=== PATIENT | female | born 1975 | race Caucasian/White ===

== ENCOUNTER → 2019-12-15 16:38 | Outpatient (BNVA) | payer OTHER, SELFPAY | PROVIDERS: Visit Provider Family Medicine | DX: R68.82 Decreased libido (principal); Z68.20 Body mass index [BMI] 20.0-20.9, adult | CPT/HCPCS: 84403 ==

== ENCOUNTER 2019-12-16 13:03 | Outpatient (CLI) | payer OTHER, SELFPAY ==
--- NOTE | 2019-12-16 11:30 | XR_ITS ---
WS: [id number] CERVICAL SPINE 3 VIEWS HISTORY: Neck pain COMPARISON: None available. Less than 2 mm anterolisthesis of C4. Moderate disc space narrowing and endplate osteophytes at C6-7. No fractures. Lateral masses of C1 and C2 are aligned. The odontoid is intact. Soft tissues are normal. XR/XR cervical spine 3V* [id number] IMPRESSION: 1. Moderate degenerative disc disease at C6-7. 2. No fractures.
== END 2019-12-16 13:04 | disposition home or self-care (01) ==
LOC: RADWPI 13:09
PROVIDERS: PCP Family Medicine; Visit Provider Family Medicine
DX: M50.323 Other cervical disc degeneration at C6-C7 level (principal)
CPT/HCPCS: 72040

== ENCOUNTER 2019-12-26 07:10 | Outpatient (CLI) | payer OTHER, SELFPAY ==
--- NOTE | 2019-12-26 07:15 | MR_ITS ---
WS: [id number] MRI CERVICAL SPINE HISTORY: M54.2 Cervicalgia COMPARISON: None available. Normal cervical alignment. Mild degenerative disc space narrowing and desiccation at C5-6 and C6-7. Signal within the cervical cord is normal. Visualized posterior fossa is unremarkable. Craniocervical junction, C1 and C2 relationship, odontoid process and soft tissues are normal. C2-C3: Normal. C3-C4: Normal. C4-C5: Normal. C5-C6: Moderate size central to RIGHT paracentral disc protrusion with near contact on the cord. Very slight deformity of the lateral RIGHT lateral thecal sac. No foraminal stenosis. C6-C7: Mild osteophytic ridging and annular disc bulging. Small bilateral disc osteophyte complexes a nd the foramen causing mild bilateral foraminal stenosis. C7-T1: Normal. Paraspinal soft tissue are normal. MR/MR cervical spin wo con* [id number] IMPRESSION: 1. No severe central or foraminal stenosis. 2. Moderate-sized central to RIGHT paracentral disc protrusion at C5-6 with mi nimal deformity of the RIGHT lateral thecal sac. 3. Mild bilateral foraminal stenosis at C6-7 due to disc osteophyte complexes.
== END 2019-12-26 07:11 | disposition home or self-care (01) ==
LOC: RADSHAW 07:13
PROVIDERS: PCP Family Medicine; Visit Provider Family Medicine
DX: M50.222 Other cervical disc displacement at C5-C6 level (principal); M48.02 Spinal stenosis, cervical region
CPT/HCPCS: 72141

== ENCOUNTER → 2020-01-06 10:49 | Outpatient (BNVA) | payer OTHER, SELFPAY | PROVIDERS: PCP Family Medicine; Referring Provider Family Medicine; Visit Provider Anesthesiology Pain Medicine | DX: G89.29 Other chronic pain (principal); M54.2 Cervicalgia; F17.210 Nicotine dependence, cigarettes, uncomplicated; Z79.891 Long term (current) use of opiate analgesic | CPT/HCPCS: 99205 ==

== ENCOUNTER → 2020-01-19 13:22 | Outpatient (BNVA) | payer OTHER, SELFPAY | PROVIDERS: PCP Family Medicine; Visit Provider Anesthesiology Pain Medicine | DX: M54.2 Cervicalgia (principal); F17.210 Nicotine dependence, cigarettes, uncomplicated | CPT/HCPCS: 62321; J1100 ==

== ENCOUNTER → 2020-02-02 12:25 | Outpatient (BNVA) | payer OTHER, SELFPAY | PROVIDERS: PCP Family Medicine; Visit Provider Anesthesiology Pain Medicine | DX: M54.2 Cervicalgia (principal); F17.210 Nicotine dependence, cigarettes, uncomplicated; Z79.891 Long term (current) use of opiate analgesic | CPT/HCPCS: 62321; J1100 ==

== ENCOUNTER → 2020-04-06 09:45 | Outpatient (BNVA) | payer OTHER, SELFPAY | PROVIDERS: PCP Family Medicine; Visit Provider Anesthesiology Pain Medicine | DX: M54.2 Cervicalgia (principal); F17.210 Nicotine dependence, cigarettes, uncomplicated; Z79.891 Long term (current) use of opiate analgesic | CPT/HCPCS: 99214 ==

== ENCOUNTER → 2020-04-12 14:00 | Outpatient (BNVA) | payer OTHER, SELFPAY | PROVIDERS: PCP Family Medicine; Visit Provider Anesthesiology Pain Medicine | DX: M54.2 Cervicalgia (principal); F17.210 Nicotine dependence, cigarettes, uncomplicated | CPT/HCPCS: 62321; J1100 ==

== ENCOUNTER → 2020-10-18 13:27 | Outpatient (BNVA) | payer OTHER, SELFPAY | PROVIDERS: PCP Family Medicine; Visit Provider Nurse Practitioner Family | DX: Z20.822 Contact with and (suspected) exposure to COVID-19 (principal) | CPT/HCPCS: 87635 ==

== ENCOUNTER 2021-05-16 08:41 | Outpatient (CLI) | payer OTHER, SELFPAY ==
--- NOTE | 2021-05-16 08:45 | US_ITS ---
WS: [id number] INDICATION: Soft tissue ultrasound. Palpable mass in groin. TECHNIQUE: Ultrasound soft tissue. FINDINGS: Ultrasound soft tissue area of concern RIGHT groin. The area of palpable concern is a cysti c hypoechoic fluid collection measuring 1.5 x 0.8 x 1.8 cm with some internal debris. This is nonspec ific but may represent a small seroma. No other suspicious findings. IMPRESSION: 1. 1.5 x 0.9 x 1.8 cm hypoechoic fluid collection with some internal debris in the area of concern. This is nonspecific but may represent a small seroma. Recommend correlation with infection or prior s urgery in this area. 2. No other suspicious findings.
== END 2021-05-16 08:42 | disposition home or self-care (01) ==
PROVIDERS: PCP Family Medicine; Visit Provider Family Medicine
DX: R19.09 Other intra-abdominal and pelvic swelling, mass and lump (principal)
CPT/HCPCS: 76882

== ENCOUNTER → 2021-07-04 13:54 | Outpatient (BNVA) | payer OTHER, SELFPAY | PROVIDERS: PCP Family Medicine; Referring Provider Family Medicine; Visit Provider Podiatrist Foot & Ankle Surgery | DX: M79.671 Pain in right foot (principal); M79.672 Pain in left foot; M21.612 Bunion of left foot; M21.611 Bunion of right foot | CPT/HCPCS: 73630 ==

== ENCOUNTER → 2021-07-26 08:52 | Outpatient (BNVA) | payer OTHER, SELFPAY | PROVIDERS: PCP Family Medicine; Visit Provider Orthopaedic Surgery | DX: M54.2 Cervicalgia (principal) | CPT/HCPCS: 72050 ==

== ENCOUNTER 2022-02-15 09:46 | Outpatient (CLI) | payer OTHER, SELFPAY ==
--- NOTE | 2022-02-15 09:57 | MM_ITS ---
WS: [id number] BILATERAL SCREENING DIGITAL BREAST MAMMOGRAPHY WITH FOSTER DISPLACEMENT VIEWS. CAD PERFORMED. HISTORY: SCREENING COMPARISON: 10/04/2016 Bilateral craniocaudal and mediolateral oblique views are performed with tomosynthesis and SM. Foster displacement views in CC and MLO projection also performed. Breasts composition: There are scattered areas of fibroglandular density. Retropectoral implants are intact. No suspicious mass or calcifications. MM/[place] [id number] IMPRESSION: BI-RADS: 2-Benign FOLLOW-UP: 1 Year Follow-up
== END 2022-02-15 09:47 | disposition home or self-care (01) ==
LOC: RAD 09:46
PROVIDERS: PCP Family Medicine; Visit Provider Family Medicine
DX: Z12.31 Encounter for screening mammogram for malignant neoplasm of breast (principal)
CPT/HCPCS: 77063; 77067

== ENCOUNTER 2022-04-10 14:53 | Inpatient (IN) | payer OTHER, SELFPAY ==
--- NOTE | 2022-04-10 14:57 | W.ED.ABDPA2 ---
HPI - Abdominal Pain General: Chief Complaint: Abdominal Pain Stated Complaint: lower abd pain Time Seen by Provider: 04/10/22 14:57 History of Present Illness: Ms. Pascual is a 46-year-old lady presenting to the emergency department due to abdominal pain. Onset of symptoms was few days ago and subacute. She endorses suprapubic and right lower quadrant abdominal pain. Associated pain when using pelvic floor muscles. She has no pain with initiating urination but has pain with stopping and also reports pain with straining for bowel movement. Sometimes pain radiating symptoms with epigastric region. Nausea but no vomiting. Intensity symptoms moderate to severe. Course has persisted. No other specific changes in health, exacerbating, or alleviating factors identified. Onset (ago): day(s) Pain Consistency: constant Severity: moderate Quality: aching and sharp Radiation: epigastric Migration to: no migration Exacerbating factors: bowel movement and other Relieving factors: nothing Review of Systems General: Reports: 10 or more systems reviewed and unremarkable except in HPI and below PFSH ED PFSH: Medical History Anxiety Surgical History H/O breast augmentation H/O hernia repair H/O knee surgery LEFT KNEE WITH DR SMITH H/O plastic surgery Family History Father Cancer Lymphoma Denies family history of Anesthesia complication Bleeding disorder Social History Smoking and tobacco status: current every day smoker cigarettes Packs smoked per day: 0.5 Alcohol intake: current Alcohol intake frequency: holidays/special occasions only Lives independently: Yes Physical Exam Const: COMMON NORMALS: alert GENERAL APPEARANCE: cooperative and well developed HENMT: COMMON NORMALS: normocephalic and atraumatic HEAD & SCALP: normocephalic and atraumatic Eye: COMMON NORMALS: conjunctivae normal CONJUNCTIVA: Yes conjunctivae normal SCLERA: sclerae normal Neck/C-Spine: COMMON NORMALS: supple GENERAL: Yes trachea midline Resp: COMMON NORMALS: clear to auscultation bilaterally EFFORT & INSPECTION: Yes able to speak in complete sentences AUSCULTATION: clear to auscultation bilaterally Cardio: COMMON NORMALS: regular rate and regular rhythm RATE: regular rate RHYTHM: regular rhythm GI: COMMON NORMALS: Soft to palpation PALPATION: Yes Soft to palpation, Yes Tenderness to palpation present (GI) Details: RLQ, No Guarding due to palpation present (GI) and No Rigid due to palpation Extremity: GENERAL: Yes normal exam except as noted and No edema Neuro: COMMON NORMALS: moves all extremities SENSORIUM/ORIENTATION: Yes alert and No Orientation impaired Psych: COMMON NORMALS: mental status grossly normal and Normal thought process present THOUGHT PROCESS: Normal thought process present Course Vital Signs: Vital signs: Vital Signs Temperature 97.8 F 04/13/22 13:31 Pulse Rate 94 04/13/22 13:31 Respiratory Rate 16 04/13/22 13:31 Blood Pressure 115/75 04/13/22 13:31 Pulse Oximetry 94 04/13/22 13:31 Oxygen Delivery Me thod 04/13/22 11:58 MDM - Abdominal Pain Medical Decision Making 46-year-old lady presenting with lower abdominal pain. Abdomen is quite tender on exam without acute surgical abdomen. Labs notable for mild leukocytosis, normal hemoglobin. Metabolic panel with perhaps mild dehydration. Hematuria without other evidence of urinary tract infection. CT demonstrates sigmoid diverticulitis with early evidence of perforation. Patient treated with antibiotics, fluids, antiemetic, analgesia. Case discussed with general surgery who will consult. Most likely etiology of symptoms is diverticulitis with contained perforation. The results of ED evaluation were discussed with the patient including plan for admission due to requirement for level of care not available if discharged to prevent significant worsening/deterioration. Patient agreeable with plan. Discussed with hospitalist service who was agreeable to admit patient. Medical Records I reviewed the patient's medical records. Lab Data I reviewed the patient's lab results. 04/10/22 15:45 04/10/22 15:45 Labs/Radiology: Radiology Impressions KUB X-Ray 04/11/22 06:00 IMPRESSION: Unremarkable radiographic appearance of the abdomen. Abdomen/Pelvis CT 04/13/22 06:52 IMPRESSION: 1. Interval development of a small RIGHT pleural effusion, ascites, mesenteric edema and periportal edema since 04/10/2022. 2. Periportal edema with IVC enlargement are thought to be related to systemic hypervolemia. Can also be seen with passive hepatic congestion and acute hepatitis. 3. Sigmoid diverticulosis without acute diverticulitis. Wall thickening with numerous diverticula. No definite free air is identified. Mild inflammatory changes persist. Laboratory Results WBC 10.6 10^3/uL (4.0-10.0) H 04/10/22 15:45 RBC 4.83 10^6/uL (4.1-5.3) 04/10/22 15:45 Hgb 13.1 g/dL (11.5-15.3) 04/10/22 15:45 Hct 41.1 % (37.0-47.0) 04/10/22 15:45 MCV 85.1 fl (81-99) 04/10/22 15:45 MCH 27.1 pg (28.0-34.0) L 04/10/22 15:45 MCHC 31.9 g/dL (30.0-36.0) 04/10/22 15:45 RDW 12.2 % (12.1-15.1) 04/10/22 15:45 Plt Count 153 10^3/cmm (130-400) 04/10/22 15:45 MPV 12.9 fL (7.4-10.4) H 04/10/22 15:45 Neut % (Auto) 71.8 % 04/10/22 15:45 Lymph % (Auto) 17.1 % 04/10/22 15:45 Glynn % (Auto) 8.3 % 04/10/22 15:45 Eos % (Auto) 1.6 % 04/10/22 15:45 Baso % (Auto) 0.9 % 04/10/22 15:45 Neut # (Auto) 7.58 10^3/uL (1.8-7.7) 04/10/22 15:45 Lymph # (Auto) 1.8 10^3/uL (0.8-4.8) 04/10/22 15:45 Glynn # (Auto) 0.9 10^3/uL (0.2-0.9) 04/10/22 15:45 Eos # (Auto) 0.2 10^3/uL (0.0-0.8) 04/10/22 15:45 Baso # (Auto) 0.1 10^3/uL (0.0-0.1) 04/10/22 15:45 Nucleated RBC % (auto) 0 % 04/10/22 15:45 Nucleated RBCs # 0.0 /100WBC 04/10/22 15:45 Sodium 134 mmol/L (136-145) L 04/10/22 15:45 Potassium 3.8 mmol/L (3.5-5.1) 04/10/22 15:45 Chloride 97 mmol/L (98-107) L 04/10/22 15:45 Carbon Dioxide 26 mmol/L (22-29) 04/10/22 15:45 Anion Gap 14.8 (5-19) 04/10/22 15:45 BUN 10 mg/dL (6-20) 04/10/22 15:45 Creatinine 0.7 mg/dL (0.5-0.9) 04/10/22 15:45 GFR Calculation 89.7 mL/min (90-130) L 04/10/22 15:45 Glucose 83 mg/dL (65-115) 04/10/22 15:45 Calculated Osmolality 276 mOsm/kg (285-295) L 04/10/22 15:45 Calcium 8.8 mg/dL (8.5-10.5) 04/10/22 15:45 Total Bilirubin 0.3 mg/dL (0.15-1.2) 04/10/22 15:45 AST 26 U/L (0-32) 04/10/22 15:45 ALT 19 U/L (0-33) 04/10/22 15:45 Alkaline Phosphatase 67 U/L (35-105) 04/10/22 15:45 Total Protein 6.8 g/dL (6.6-8.7) 04/10/22 15:45 Albumin 3.8 g/dL (3.5-5.2) 04/10/22 15:45 Globulin 3.0 g/dL (1.3-4.6) 04/10/22 15:45 Lipase 23 U/L (13-60) 04/10/22 15:45 HCG, Qual Negative (Negative) 04/10/22 15:21 Urine Color Yellow (Yellow) 04/10/22 15:21 Urine Appearance Clear (CLEAR) 04/10/22 15:21 Urine pH 5 (5-7) 04/10/22 15:21 Ur Specific [place] 1.015 (1.005-1.030) 04/10/22 15:21 Urine Protein Neg (Negative) 04/10/22 15:21 Urine Glucose (UA) Norm (Normal) 04/10/22 15:21 Urine Ketones 1+ (Negative) H 04/10/22 15:21 Urine Blood 3+ (Negative) H 04/10/22 15:21 Urine Nitrate Negative (Negative) 04/10/22 15:21 Urine Bilirubin Neg (Negative) 04/10/22 15:21 Urine Urobilinogen Norm mg/dL (Negative) 04/10/22 15:21 Ur Leukocyte Esterase Negative (Negative) 04/10/22 15:21 Urine RBC 0-4 /hpf (0-2) H 04/10/22 15:21 Urine WBC None /hpf (0-5) 04/10/22 15:21 Ur Squamous Epith Cells 0-4 /hpf (0-5) H 04/10/22 15:21 Amorphous Sediment Not Reportable 04/10/22 15:21 Urine Bacteria Trace /hpf (NONE) 04/10/22 15:21 Discharge Plan Discharge Patient Disposition: Admitted As Inpatient Admit Provider: Logan Pichardo Clinical Impression: Diverticulitis of large intestine with complication Condition: Stable Discharge Diet: Advance as tolerated Discharge Activity: Resume usual activity Coding Level of Care Code ED Systems Protection Technician for Leslee Campbell
[2022-04-10 14:58] VITALS: BP 107/74; PULSE 101; RESP 18; TEMP 36.7; O2SAT 100
[2022-04-10 15:05] VITALS: BP 104/67; PULSE 83; O2SAT 97
[2022-04-10 15:35] VITALS: PULSE 81; O2SAT 99
[2022-04-10 15:53] LABS: Basophils # 0.1 10^3/uL (0.0-0.1); Basophils % 0.9 %; Eosinophils # 0.2 10^3/uL (0.0-0.8); Eosinophils % 1.6 %; Hematocrit 41.1 % (37.0-47.0); Hemoglobin 13.1 g/dL (11.5-15.3); Lymphocytes # 1.8 10^3/uL (0.8-4.8); Lymphocytes % 17.1 %; Mean Corpuscular HGB Conc 31.9 g/dL (30.0-36.0); Mean Corpuscular Hemoglobin 27.1 pg (28.0-34.0); Mean Corpuscular Volume 85.1 fl (81-99); Mean Platelet Volume 12.9 fL (7.4-10.4); Monocytes # 0.9 10^3/uL (0.2-0.9); Monocytes % 8.3 %; Neutrophils # 7.58 10^3/uL (1.8-7.7); Neutrophils % 71.8 %; Nucleated Red Blood Cells % 0 %; Platelet Count 153 10^3/cmm (130-400); Red Blood Count 4.83 10^6/uL (4.1-5.3); Red Cell Distribution Width 12.2 % (12.1-15.1); White Blood Count 10.6 10^3/uL (4.0-10.0)
[2022-04-10 15:56] LABS: HCG Qualitative Urine. Negative (Negative); Urine Appearance Clear (CLEAR); Urine Color Yellow (Yellow); pH Urine 5 (5-7)
[2022-04-10 15:57] LABS: Add Urine Microscopic? YES; Bacteria Urine TRACE /hpf; Bilirubin Urine Neg (Negative); Glucose Urine UA Norm (Normal); Leukocyte Esterase Urine Negative (Negative); Nitrate Urine Negative (Negative); Protein Urine Neg (Negative); RBC Urine 0-4 /hpf (0-2); Specific Gravity, Urine 1.015 (1.005-1.030); Squamous Epithelial Cell Urine 0-4 /hpf (0-5); Urobilinogen Urine Norm (Negative)
[2022-04-10 15:58] LABS: Add Urine Culture? No; Blood Urine 3+ (Negative); Ketones Urine 1+ (Negative)
[2022-04-10 16:05] VITALS: BP 104/67; PULSE 73; RESP 16; O2SAT 100
[2022-04-10] MEDS: sodium chloride 0.9% 1,000 ML 999 ML IV (16:07)
[2022-04-10] MEDS: ondansetron 2 mg/ML SDV 2 mL 4 MG IVP (16:07)
[2022-04-10 16:13] LABS: Alanine Aminotransferase 19 U/L (0-33); Albumin Level 3.8 g/dL (3.5-5.2); Alkaline Phosphatase 67 U/L (35-105); Anion Gap 14.8 (5-19); Aspartate Amino Transferase 26 U/L (0-32); Blood Urea Nitrogen 10 mg/dL (6-20); Calcium 8.8 mg/dL (8.5-10.5); Carbon Dioxide 26 mmol/L (22-29); Chloride 97 mmol/L (98-107); Glomerular Filtration Rate 89.7 mL/min (90-130); Glucose 83 mg/dL (65-115); Lipase 23 U/L (13-60); Osmolality Calculated 276 mOsm/kg (285-295); Potassium 3.8 mmol/L (3.5-5.1); Sodium 134 mmol/L (136-145); Total Bilirubin 0.3 mg/dL (0.15-1.2); Total Protein 6.8 g/dL (6.6-8.7)
--- NOTE | 2022-04-10 16:20 | CTR_ITS ---
PROCEDURE INFORMATION: Exam: CT Abdomen And Pelvis Without Contrast Exam date and time: 04/10/2022 4:32 PM Age: 46 years old Clinical indication: Abdominal pain; Prior surgery; Surgery date: 6+ months; Surgery type: Hernia; Additional info: Abd pain, suprapubic and rlq, hematuria TECHNIQUE: Imaging protocol: Computed tomography of the abdomen and pelvis without contrast. Axial, coronal and sagittal reformatted images were created and reviewed. Radiation optimization: All CT scans at this facility use at least one of these dose optimization techniques: automated exposure control; mA and/or kV adjustment per patient size (includes targeted exams where dose is matched to clinical indication); or iterative reconstruction. Other protocol: This patient has received 0 known CTs and 0 known cardiac nuclear medicine studies in the 12 months prior to the current study. COMPARISON: US soft tissue/extremity [id number] 05/16/2021 9:46 AM RADIATION DOSE METRICS: Total DLP (mGy-cm): 379.01 FINDINGS: Liver: Scattered hepatic cysts, measuring up to 2.6 cm in the left hepatic lobe. Gallbladder and bile ducts: No radiodense gallstones. No biliary ductal dilatation. Pancreas: Unremarkable. Spleen: Several low-density splenic lesions, measuring up to 1.3 cm. Adrenal glands: Normal. No mass. Kidneys and ureters: No mass. No radiodense calculi. No hydronephrosis. Stomach and bowel: Focal area of wall thickening and associated pericolonic stranding in the sigmoid colon in a region containing multiple diverticula. No obstruction. No pneumatosis. Appendix: Normal. Intraperitoneal space: Trace nonspecific free pelvic fluid, likely physiologic and/or reactive. No organized fluid collection. Small amount of extraluminal gas adjacent to the inflamed segment of sigmoid colon. Vasculature: Unremarkable. No aneurysm. Lymph nodes: No pathologically enlarged lymph nodes. Urinary bladder: Unremarkable as visualized. Reproductive: Unremarkable. Bones/joints: No acute osseous abnormality. Osteopenia. Mild degenerative changes. Soft tissues: Breast implants in place. CT/CT kidney stone [id number] IMPRESSION: 1. Acute sigmoid diverticulitis with evidence of early perforation. 2. Additional findings, as above.
--- NOTE | 2022-04-10 18:12 | P.HP_ITS ---
Providers/Chief Complaint Primary Care Provider: Aniya Bishop MD Chief Complaint: lower abd pain History of Present Illness Alexia Pascual is a 46 year old female with a past medical history of irritable bowel syndrome, anxiety, who presents [facility] due to a 48-hour history of abdominal pain, distention, bloating, inability to pass gas. Patient has been for the last 40 hours, she started to develop abdominal distention, bloating, she felt like she was , no fevers, chills, poor appetite, no nausea, no vomiting, she tells me last she is to get an enema, and she had to strain and she was able to have a bowel movement early this morning. No bloody or black stools. Continues to have abdominal pain, bloating, and inability to pass gas, that she came to the emergency room, in the emergency room she was alonzo gnosed with diverticulitis with evidence of early perforation, currently hemodynamically stable, alert oriented x3, following all commands, n.p.o., at bedside, surgery has called, hospitalist team has been called to help with medical management Review of Systems Const: Denies: fever(s), chills, fatigue or malaise Eyes: Denies: change in vision Card: Denies: chest pain Resp: Denies: dyspnea, productive cough, non-productive cough or wheezing GI: Reports: abdominal pain; Denies: nausea or vomiting : Denies: dysuria Musc: Denies: back pain Neuro: Denies: dizziness Medications/Allergies Home Medications Medication Instructions Recorded Confirmed Last Taken Type albuterol sulfate 90 mcg/actuation See Rx Instructions .Route 03/16/21 01/19/22 Unknown Rx aerosol inhaler (Ventolin HFA) .COMPLEX #1 g amlodipine 2.5 mg tablet 1.25 mg PO DAILY #30 tabs 03/16/21 01/19/22 Unknown Rx triamterene 37.5 1 tab PO QAM #30 tabs 03/16/21 01/19/22 Unknown Rx mg-hydrochlorothiazide 25 mg tablet (Maxzide-25mg) dapsone 5 % topical gel 1 applic topical BID #60 grams 05/02/21 01/19/22 Unknown Rx doxycycline hyclate 100 mg capsule 100 mg PO BID #20 caps 05/23/21 01/19/22 Unknown Rx valacyclovir 1 gram tablet See Rx Instructions .Route 08/03/21 01/19/22 Unknown Rx .COMPLEX #4 tabs lisdexamfetamine 40 mg capsule 40 mg PO QAM 30 days #30 caps 01/19/22 01/19/22 Unknown Rx (Vyvanse) trazodone 100 mg tablet 100 mg PO .QHS #30 tabs 01/19/22 01/19/22 Unknown Rx citalopram 20 mg tablet (Celexa) 20 mg PO DAILY #30 tabs 02/09/22 Unknown Rx alprazolam 0.25 mg tablet 0.25 mg PO DAILY PRN anxiety #30 02/10/22 Unknown Rx tabs Allergies Allergy/AdvReac Type Severity Reaction Status Date / Time No Known Allergies Allergy Verified 01/19/22 09:13 PFSH Acute PFSH: Medical History Anxiety Surgical History H/O breast augmentation H/O hernia repair H/O knee surgery LEFT KNEE WITH DR SMITH H/O plastic surgery Family History (Updated 04/10/22 @ 18:15 by Logan Pichardo MD) Father Cancer Lymphoma Denies family history of Anesthesia complication Bleeding disorder Social History Smoking and tobacco status: current every day smoker cigarettes Packs smoked per day: 0.5 Alcohol intake: current Alcohol intake frequency: holidays/special occasions only Lives independently: Yes Vitals/I&O/Wt Last Vital Signs Temp 98.1 F 04/10/22 14:58 Pulse 73 04/10/22 16:05 Resp 16 04/10/22 16:05 BP 104/67 04/10/22 16:05 Pulse Ox 100 04/10/22 16:05 O2 Del Method 04/10/22 16:05 Weight last 48 hrs Weight 66.678 kg Physical Exam Const: COMMON NORMALS: no acute distress and patient oriented x3 HENMT: COMMON NORMALS: normocephalic HEAD & SCALP: normocephalic Eye: COMMON NORMALS: Equal, round and reactive pupils present and EOMs intact bilaterally Neck/C-Spine: COMMON NORMALS: no JVD Lymph: LYMPHATIC: no lymphadenopathy noted Resp: COMMON NORMALS: normal respiratory effort, No retractions, No use of accessory muscles and clear to auscultation bilaterally AUSCULTATION: clear to auscultation bilaterally Cardio: COMMON NORMALS: no JVD, regular rate, regular rhythm, S1 normal heart sound present and S2 normal heart sound present RATE: regular rate RHYTHM: regular rhythm HEART SOUNDS: S1 normal heart sound present and S2 normal heart sound present GI: OTHER: Abdomen soft, distended, diffuse tenderness, exquisite tenderness in left lower quadrant, no guarding, no rebound, no rigidity : COMMON NORMALS: Yes no CVA tenderness Extremity: COMMON NORMALS: no pedal edema Neuro: COMMON NORMALS: patient oriented x3, CN's II-XII intact bilaterally, moves all extremities and no focal motor deficits Psych: COMMON NORMALS: mental status grossly normal Data 04/10/22 15:45 04/10/22 15:45 Micro: Microbiology 04/10/22 17:10 Wet Prep - Final Vaginal A&P Assessment and plan (1) Diverticulitis of colon with perforation: (2) Goals of care, counseling/discussion: (3) Smoker: (4) Irritable bowel syndrome: Plan Acute diverticulitis with evidence of early perforation -CT without contrast Stomach and bowel: Focal area of wall thickening and associated pericolonic stranding in the sigmoid colon in a region containing multiple diverticula. No obstruction. No pneumatosis. Appendix: Normal. Intraperitoneal space: Trace nonspecific free pelvic fluid, likely physiologic and/or reactive. No organized fluid collection. Small amount of extraluminal gas adjacent to the inflamed segment of sigmoid colon. Vasculature: Unremarkable. No aneurysm. Lymph nodes: No pathologically enlarged lymph nodes. Urinary bladder: Unremarkable as visualized. Reproductive: Unremarkable. Bones/joints: No acute osseous abnormality.? Osteopenia. Mild degenerative changes. Soft tissues: Breast implants in place. CT/CT kidney stone [id number] IMPRESSION: 1. Acute sigmoid diverticulitis with evidence of early perforation. 2. Additional findings, as above. -Pro-[place], CRP, lactic acid, blood cultures, INR Plan -Admit to medical floors -Serial abdominal exams -Keep n.p.o. -KUB in a.m. -Based on clinical progress might have to order CT scan abdomen pelvis with contrast -Morphine for pain control -Zofran for nausea -D5 normal saline IV fluids for hydration -Place Hayes catheter -Full code, goals of care discussion -Lovenox on hold for DVT prophylaxis and SCDs as there might be plans on surgery Attestations Medical Necessity Statement*: Patient will consult position, inpatient, greater than 2 midnights, for diverticulitis of colon with perforation, irritable bowel syndrome Coding Level of Care Code Acute Code for Chg Fwd Diagnoses Diverticulitis of colon with perforation K57.20 Goals of care, counseling/discussion Z71.89 Smoker F17.200 Irritable bowel syndrome K58.9
[2022-04-10] MEDS: piperacillin-tazobactam 4.5 GM in sodium chloride 0.9% (plus) 50 ML IV (18:30)
[2022-04-10 18:48] LABS: Lactic Sepsis W/Reflex 0.6 mmol/L (0.5-2.2)
[2022-04-10 18:52] LABS: INR 0.98 (0.8-1.2)
[2022-04-10 19:31] VITALS: BP 100/72; PULSE 75; RESP 14; O2SAT 99
[2022-04-10 21:00] VITALS: BP 94/60; PULSE 69; RESP 17; TEMP 36.7; O2SAT 97
[2022-04-10] MEDS: pantoprazole 40 mg SDV IVP (22:10)
[2022-04-10] MEDS: dextrose 5%-sod chloride 0.9% 1,000 ML 125 ML IV (22:12)
[2022-04-10 23:07] LABS: Thyroid Stimulating Hormone 3.42 uIU/mL (0.27-4.20)
[2022-04-11] VITALS (7 sets, daily range): BP systolic 87–138; BP diastolic 51–72; PULSE 51–81; RESP 15–17; TEMP 36.4–37; O2SAT 96–99
[2022-04-11] MEDS: trazodone 100 mg Tablet 50 MG PO (01:09)
[2022-04-11] MEDS: piperacillin-tazobactam 3.375 GM in sodium chloride 0.9% (plus) 50 ML IV ×3 (01:12→16:45)
[2022-04-11 05:33] LABS: Basophils # 0.1 10^3/uL (0.0-0.1); Basophils % 1.2 %; Eosinophils # 0.2 10^3/uL (0.0-0.8); Eosinophils % 3.1 %; Hematocrit 38.3 % (37.0-47.0); Hemoglobin 12.3 g/dL (11.5-15.3); Lymphocytes # 1.9 10^3/uL (0.8-4.8); Lymphocytes % 30.1 %; Mean Corpuscular HGB Conc 32.1 g/dL (30.0-36.0); Mean Corpuscular Hemoglobin 27.4 pg (28.0-34.0); Mean Corpuscular Volume 85.3 fl (81-99); Mean Platelet Volume 13.4 fL (7.4-10.4); Monocytes # 0.7 10^3/uL (0.2-0.9); Monocytes % 10.5 %; Neutrophils # 3.52 10^3/uL (1.8-7.7); Neutrophils % 54.9 %; Nucleated Red Blood Cells % 0 %; Platelet Count 146 10^3/cmm (130-400); Red Blood Count 4.49 10^6/uL (4.1-5.3); Red Cell Distribution Width 12.2 % (12.1-15.1); White Blood Count 6.4 10^3/uL (4.0-10.0)
[2022-04-11 05:43] LABS: Lactate (Lactic Acid level) 0.6 mmol/L (0.5-2.2)
[2022-04-11 05:45] LABS: Alanine Aminotransferase 15 U/L (0-33); Albumin Level 3.2 g/dL (3.5-5.2); Alkaline Phosphatase 55 U/L (35-105); Anion Gap 12.8 (5-19); Aspartate Amino Transferase 19 U/L (0-32); Blood Urea Nitrogen 9 mg/dL (6-20); Calcium 8.1 mg/dL (8.5-10.5); Carbon Dioxide 22 mmol/L (22-29); Chloride 108 mmol/L (98-107); Glomerular Filtration Rate 89.7 mL/min (90-130); Glucose 105 mg/dL (65-115); Magnesium 1.9 mg/dL (1.7-2.3); Osmolality Calculated 287 mOsm/kg (285-295); Phosphorus 3.6 mg/dL (2.5-4.5); Potassium 3.8 mmol/L (3.5-5.1); Sodium 139 mmol/L (136-145); Total Bilirubin 0.4 mg/dL (0.15-1.2); Total Protein 5.2 g/dL (6.6-8.7)
[2022-04-11 05:47] LABS: Procalcitonin 0.05 ng/mL (0-0.5)
[2022-04-11] MEDS: dextrose 5%-sod chloride 0.9% 1,000 ML 125 ML IV ×3 (05:54→22:53)
--- NOTE | 2022-04-11 06:00 | XRR_ITS ---
PROCEDURE INFORMATION: Exam: XR Abdomen Exam date and time: 04/11/2022 5:57 AM Age: 46 years old Clinical indication: Abdominal pain; Patient HX: Acute diverticulitis follow up TECHNIQUE: Imaging protocol: Radiologic exam of the abdomen. Views: Frontal supine view of the abdomen. 1 View. COMPARISON: CT kidney stone [id number] 04/10/2022 4:32 PM FINDINGS: Gastrointestinal tract: Normal radiographic appearance. No bowel dilation. Intraperitoneal space: Negative for radiographically visible pneumoperitoneum. Bones/joints: Unremarkable. XR/XR KUB portable [id number] IMPRESSION: Unremarkable radiographic appearance of the abdomen.
[2022-04-11] MEDS: pantoprazole 40 mg SDV IVP ×2 (09:52→21:48)
--- NOTE | 2022-04-11 10:15 | PM.PN ---
Vitals/I&O/Wt Last Vital Signs Temp 97.8 F 04/11/22 07:46 Pulse 51 L 04/11/22 07:46 Resp 15 04/11/22 07:46 BP 97/63 04/11/22 07:46 Pulse Ox 98 04/11/22 07:46 O2 Del Method 04/11/22 07:46 04/10/22 04/11/22 04/11/22 22:59 06:59 14:59 Intake Total 1050 / 1050 1012.5 / 2062.5 Output Total 100 / 100 Balance 1050 / 1050 912.5 / 1962.5 Weight last 48 hrs Weight 66.497 kg Weight 66.678 kg Physical Exam Const: COMMON NORMALS: no acute distress and patient oriented x3 Resp: COMMON NORMALS: normal respiratory effort, No retractions, No use of accessory muscles and clear to auscultation bilaterally AUSCULTATION: clear to auscultation bilaterally Cardio: COMMON NORMALS: regular rate, regular rhythm, S1 normal heart sound present and S2 normal heart sound present RATE: regular rate RHYTHM: regular rhythm HEART SOUNDS: S1 normal heart sound present and S2 normal heart sound present GI: COMMON NORMALS: Soft to palpation INSPECTION: Yes abdominal distension AUSCULTATION: Yes Hypoactive bowel sounds present PALPATION: Yes Soft to palpation, Yes Tenderness to palpation present (GI) Details: LLQ, RLQ, LUQ and RUQ, No Guarding due to palpation present (GI) and No Rigid due to palpation Extremity: COMMON NORMALS: no pedal edema Neuro: COMMON NORMALS: patient oriented x3 Psych: COMMON NORMALS: mental status grossly normal Data 04/11/22 04:56 04/11/22 04:56 Micro: Microbiology 04/10/22 18:15 Blood Culture - Preliminary Blood SPECIMEN COLLECTED 04/10/22 18:25 Blood Culture - Preliminary Blood SPECIMEN COLLECTED 04/10/22 17:10 Wet Prep - Final Vaginal A&P Assessment and plan (1) Diverticulitis of colon with perforation: (2) Goals of care, counseling/discussion: (3) Smoker: (4) Irritable bowel syndrome: Plan Acute diverticulitis with evidence of early perforation -CT without contrast Stomach and bowel: Focal area of wall thickening and associated pericolonic stranding in the sigmoid colon in a region containing multiple diverticula. No obstruction. No pneumatosis. Appendix: Normal. Intraperitoneal space: Trace nonspecific free pelvic fluid, likely physiologic and/or reactive. No organized fluid collection. Small amount of extraluminal gas adjacent to the inflamed segment of sigmoid colon. Vasculature: Unremarkable. No aneurysm. Lymph nodes: No pathologically enlarged lymph nodes. Urinary bladder: Unremarkable as visualized. Reproductive: Unremarkable. Bones/joints: No acute osseous abnormality.? Osteopenia. Mild degenerative changes. Soft tissues: Breast implants in place. CT/CT kidney stone [id number] IMPRESSION: 1. Acute sigmoid diverticulitis with evidence of early perforation. 2. Additional findings, as above. Plan -Admit to medical floors -Serial abdominal exams -Keep n.p.o. -Based on clinical progress might have to order CT scan abdomen pelvis with contrast -Morphine for pain control -Zofran for nausea -D5 normal saline IV fluids for hydration -Place Hayes catheter -Full code, goals of care discussion -Lovenox for DVT prophylaxis and SCDs Plan for today continue bowel rest, therapy, serial abdominal exams Attestations Medical Necessity Statement*: Patient requires hospitalization for acute diverticulitis, with evidence of early perforation, Coding Level of Care Code Acute Code for g Fwd Diagnoses Diverticulitis of colon with perforation K57.20 Goals of care, counseling/discussion Z71.89 Smoker F17.200 Irritable bowel syndrome K58.9
--- NOTE | 2022-04-11 10:39 | PC.CHAP ---
Pastoral Care Encounter/Spiritual Assessment Type of Contact [] Declined assistant professor of english visit [] Patient/Family/Request visit [] Outpatient visit [] Follow-up visit [] Physician referral [] Code/Alert [x] Routine visit [] Staff referral [] Actively dying [] Patient sleeping [] Family support [] [] Out of room [] Palliative care [] [x [] Long length of stay [] ICU visit [] Other: Relational/Emotional Strength [] Patient feels connected with others/family/visitors/staff [] Distress [] Loneliness/isolation [] Abandonment Spirituality of Patient [] Person of Darline [] Attends Episcopalian of their Darline [] Believes in Prayer [] Reads Bible or Presybeterian materials [] There are Spiritual issues to be addressed Petroleum Inspector Interventions [] Prayer [] Active listening [] Non-anxious presence [] Spiritual/emotional support [] Crisis/trauma care [] Spiritual counseling [] Bereavement support [] Provided bereavement packet [] Provided Bible/devotional materials [] Provided toy/stuffed animal, coloring book to patient or family member [] Provided Communion [] Anointing/[place]offey [] Salvation [] Completed spiritual assessment [] Other: Impact on Illness or Injury [] Angry [] Fearful [] Anxious [] Often cries [] Exhaustion [] Unable to work [] Unable to attend jain [] Unable to walk/stand [] Unable to read [] Unable to drive [] Unable to eat/drink [] Unable to sleep [] Unable to be with family [] Patient intubated [] Other: Summary Time spent with patient
--- NOTE | 2022-04-11 10:45 | P.CONIM_ITS ---
Providers/Reason For Consult Consulting Physician/Specialty*: Dr. Wolfgang Marroquin, DO/General surgery Reason for Consult*: Diverticular abscess with microperforation Attending Physician: Logan Pichardo MD Primary Care Provider: Aniya Bishop MD History of Present Illness History of Present Illness Alexia Pascual is a 46 year old female who presents to the hospital with a 4-day history of left lower quadrant abdominal pain. She denies any fever or chills, denies any diarrhea or constipation. Denies any nausea or vomiting. She reports that she never had diverticulitis before. She has never had a colonoscopy. Denies any family history of colon cancer. She reports that her pain is sharp and constant, located in the left lower quadrant. Palpation makes the pain worse. The antibiotics seem to make the pain better. The pain does not radiate. CT shows a contained perforation of the sigmoid colon Review of Systems General: Reports: 10 or more systems reviewed and unremarkable except in HPI and below Medications/Allergies Home Medications Medication Instructions Recorded Confirmed Last Taken Type albuterol sulfate 90 mcg/actuation See Rx Instructions .Route 03/16/21 04/11/22 Unknown Rx aerosol inhaler (Ventolin HFA) .COMPLEX #1 g triamterene 37.5 1 tab PO QAM #30 tabs 03/16/21 04/11/22 Unknown Rx mg-hydrochlorothiazide 25 mg tablet (Maxzide-25mg) valacyclovir 1 gram tablet See Rx Instructions .Route 08/03/21 04/11/22 Unknown Rx .COMPLEX #4 tabs lisdexamfetamine 40 mg capsule 40 mg PO QAM 30 days #30 caps 01/19/22 04/11/22 Unknown Rx (Vyvanse) trazodone 100 mg tablet 100 mg PO .QHS #30 tabs 01/19/22 04/11/22 Unknown Rx alprazolam 0.25 mg tablet 0.25 mg PO DAILY PRN anxiety #30 02/10/22 04/11/22 Unknown Rx tabs Phytoestrogens 1 tab PO BID 04/11/22 04/11/22 Unknown History ascorbic acid (vitamin C) 500 mg 500 mg PO DAILY 04/11/22 04/11/22 Unknown History tablet (Vitamin C) ashwagandha root extract 300 mg 300 mg PO DAILY 04/11/22 04/11/22 Unknown History capsule cholecalciferol (vitamin D3) 25 25 mcg PO DAILY 04/11/22 04/11/22 Unknown History mcg (1,000 unit) capsule (Vitamin D3) evening primrose oil 500 mg capsule 500 mg PO TID 04/11/22 04/11/22 Unknown History lactobacillus combination no.4 3 3,000 mmu cells PO DAILY 04/11/22 04/11/22 Unknown History billion cell capsule (Probiotic) magnesium 200 mg tablet 200 mg PO DAILY 04/11/22 04/11/22 Unknown History prasterone (dhea) 50 mg capsule 50 mg PO DAILY 04/11/22 04/11/22 Unknown History (DHEA) vitamin K2 45 mcg capsule 45 mcg PO DAILY 04/11/22 04/11/22 Unknown History zinc acetate 25 mg (zinc) capsule 25 mg PO DAILY 04/11/22 04/11/22 Unknown History Allergies Allergy/AdvReac Type Severity Reaction Status Date / Time No Known Allergies Allergy Verified 04/11/22 08:27 Current Medications Generic Name Dose Route Start Last Admin Trade Name Darshan PRN Reason Stop Dose Admin Citalopram Hydrobromide 20 mg 04/11/22 09:00 04/11/22 09:53 Citalopram 20 Mg Tablet PO Not Given DAILY DIMPLE Dextrose/Sodium Chloride 1,000 mls @ 125 mls/hr 04/10/22 21:56 04/11/22 05:54 Dextrose 5%-Sod Chloride 0.9% IV 125 mls/hr .Q8H DIMPLE Administration Piperacillin Sod/Tazobactam 50 mls @ 12.5 mls/hr 04/11/22 00:30 04/11/22 09:52 Sod 3.375 gm/ Sodium Chloride IV 12.5 mls/hr Q8H DIMPLE Administration Pantoprazole Sodium 40 mg 04/10/22 21:56 04/11/22 09:52 Pantoprazole 40 Mg Sdv IVP 40 mg Q12H DIMPLE Administration Trazodone HCl 50 mg 04/10/22 23:45 04/11/22 01:09 Trazodone 100 Mg Tablet PO 50 mg BEDTIME DIMPLE Administration PFSH Acute PFSH: Medical History Anxiety Surgical History H/O breast augmentation H/O hernia repair H/O knee surgery LEFT KNEE WITH DR SMITH H/O plastic surgery Family History Father Cancer Lymphoma Denies family history of Anesthesia complication Bleeding disorder Social History Smoking and tobacco status: current every day smoker cigarettes Packs smoked per day: 0.5 Alcohol intake: current Alcohol intake frequency: holidays/special occasions only Lives independently: Yes Female Reproductive History: Date of last menstrual period: 03/29/22 Vitals/I&O/Wt Last Vital Signs Temp 97.8 F 04/11/22 07:46 Pulse 51 L 04/11/22 07:46 Resp 15 04/11/22 07:46 BP 97/63 04/11/22 07:46 Pulse Ox 98 04/11/22 07:46 O2 Del Method 04/11/22 07:46 04/10/22 04/11/22 04/11/22 22:59 06:59 14:59 Intake Total 1050 / 1050 1012.5 / 2062.5 Output Total 100 / 100 Balance 1050 / 1050 912.5 / 1962.5 Weight last 48 hrs Weight 146 lb 9.6 oz Weight 147 lb Physical Exam Narrative: General : Patient is well developed , no acute distress, oriented x3 Head : Normal cephalic, a-traumatic. Ears : Pinnae and external canal are normal. Hearing is normal. Eyes : PERRLA, Sclera and injection are normal. No conjunctival discharge. Nose : Mucous membranes are without erythema. Throat : buccal mucosa is normal, gums are without significant recession or hypertrophy. Lungs : Equal chest rise bilaterally, no use of accessory muscles, trachea is midline. Cor : Rate and rhythm are normal. Abdomen : Soft, ND, tender to palpation left lower quadrant, no g/r/m Extremities : No edema, no cyanosis or clubbing, dorsalis pedis pulses are present bilaterally, non-tender to palpation of calves. Upper extremities are normal bilaterally. Back : non-tender to palpation, no CVA tenderness. Neuro : CN II - XII intact, Upper and lower extremities have equal and full strength Data 04/11/22 04:56 04/11/22 04:56 Micro: Microbiology 04/10/22 18:15 Blood Culture - Preliminary Blood SPECIMEN COLLECTED 04/10/22 18:25 Blood Culture - Preliminary Blood SPECIMEN COLLECTED 04/10/22 17:10 Wet Prep - Final Vaginal A&P Assessment and plan (1) Diverticulitis of large intestine with complication: Plan IV fluids Antibiotics Pain control N.p.o. except ice chips Conservative management for now If she passes conservative management, she will need a repeat CT abdomen before discharge to evaluate for abscess formation If she fails conservative management, she will need to go for a Christian's procedure She will need a colonoscopy in 6 to 8 weeks Recommend elective sigmoidectomy after colonoscopy if she passes conservative management Thank you for this consultation Coding Level of Care Code Acute Code for [facility] Fwd Diagnoses Diverticulitis of large intestine with complication K57.32
[2022-04-11] MEDS: enoxaparin 40 mg/0.4 mL Syringe SUBCUT (12:02)
[2022-04-12] VITALS (7 sets, daily range): BP systolic 92–114; BP diastolic 52–74; PULSE 63–74; RESP 15–18; TEMP 36.4–36.7; O2SAT 95–100
[2022-04-12] MEDS: piperacillin-tazobactam 3.375 GM in sodium chloride 0.9% (plus) 50 ML IV ×4 (00:26→23:45)
[2022-04-12 05:24] LABS: Basophils # 0.1 10^3/uL (0.0-0.1); Basophils % 1.1 %; Eosinophils # 0.2 10^3/uL (0.0-0.8); Eosinophils % 2.9 %; Hemoglobin 11.7 g/dL (11.5-15.3); Lymphocytes # 1.6 10^3/uL (0.8-4.8); Mean Corpuscular HGB Conc 32.5 g/dL (30.0-36.0); Mean Corpuscular Hemoglobin 27.7 pg (28.0-34.0); Mean Corpuscular Volume 85.3 fl (81-99); Mean Platelet Volume 13.2 fL (7.4-10.4); Monocytes # 0.6 10^3/uL (0.2-0.9); Monocytes % 9.9 %; Neutrophils # 3.77 10^3/uL (1.8-7.7); Neutrophils % 60.9 %; Nucleated Red Blood Cells % 0 %; Platelet Count 152 10^3/cmm (130-400); Red Blood Count 4.22 10^6/uL (4.1-5.3); White Blood Count 6.2 10^3/uL (4.0-10.0)
[2022-04-12 05:40] LABS: Blood Urea Nitrogen 6 mg/dL (6-20); Carbon Dioxide 24 mmol/L (22-29); Chloride 110 mmol/L (98-107); Glomerular Filtration Rate 89.7 mL/min (90-130); Glucose 121 mg/dL (65-115); Osmolality Calculated 289 mOsm/kg (285-295); Sodium 140 mmol/L (136-145)
[2022-04-12] MEDS: dextrose 5%-sod chloride 0.9% 1,000 ML 125 ML IV ×3 (05:42→21:25)
[2022-04-12 05:48] LABS: Anion Gap 9.9 (5-19); Potassium 3.9 mmol/L (3.5-5.1)
[2022-04-12] MEDS: NON-FORMULARY MEDICATION (Lactobacillus Combination No.4 [Probiotic] 3 billion cell Capsul 3000 EACH PO (08:22)
[2022-04-12] MEDS: pantoprazole 40 mg SDV IVP ×2 (10:36→21:19)
[2022-04-12] MEDS: enoxaparin 40 mg/0.4 mL Syringe SUBCUT (10:36)
--- NOTE | 2022-04-12 11:32 | P.PN_ITS ---
Subjective Subjective: Patient was seen this morning, she tells me that she passed gas overnight, she is able to ambulate, no nausea, no vomiting, she is on ice chips Vitals/I&O/Wt Last Vital Signs Temp 98.1 F 04/12/22 07:34 Pulse 67 04/12/22 07:34 Resp 18 04/12/22 07:34 BP 92/52 04/12/22 07:34 Pulse Ox 95 04/12/22 07:34 O2 Del Method 04/12/22 07:34 04/11/22 04/12/22 04/12/22 22:59 06:59 14:59 Intake Total 1050 / 2100 902.083 / 3002.083 Output Total 800 / 800 Balance 1050 / 2100 902.083 / 3002.083 -800 / -800 Weight last 48 hrs Weight 66.497 kg Weight 66.678 kg Physical Exam Const: COMMON NORMALS: no acute distress and patient oriented x3 Resp: COMMON NORMALS: normal respiratory effort, No retractions, No use of accessory muscles and clear to auscultation bilaterally AUSCULTATION: clear to auscultation bilaterally Cardio: COMMON NORMALS: regular rate, regular rhythm, S1 normal heart sound present and S2 normal heart sound present RATE: regular rate RHYTHM: regular rhythm HEART SOUNDS: S1 normal heart sound present and S2 normal heart sound present GI: OTHER: Abdomen soft, distended, low pitched bowel sounds, no guarding, no rebound, no rigidity Extremity: COMMON NORMALS: no pedal edema Neuro: COMMON NORMALS: patient oriented x3 Psych: COMMON NORMALS: mental status grossly normal Data 04/12/22 04:59 04/12/22 04:59 Micro: Microbiology 04/12/22 09:23 Blood Culture - Preliminary Blood SPECIMEN COLLECTED 04/12/22 09:23 Blood Culture - Preliminary Blood SPECIMEN COLLECTED 04/10/22 18:25 Blood Culture - Preliminary Blood 04/10/22 18:15 Blood Culture - Preliminary Blood NEGATIVE TO DATE A&P Assessment and plan (1) Diverticulitis of large intestine with complication: Plan Acute diverticulitis with evidence of early perforation -CT without contrast Stomach and bowel: Focal area of wall thickening and associated pericolonic stranding in the sigmoid colon in a region containing multiple diverticula. No obstruction. No pneumatosis. Appendix: Normal. Intraperitoneal space: Trace nonspecific free pelvic fluid, likely physiologic and/or reactive. No organized fluid collection. Small amount of extraluminal gas adjacent to the inflamed segment of sigmoid colon. Vasculature: Unremarkable. No aneurysm. Lymph nodes: No pathologically enlarged lymph nodes. Urinary bladder: Unremarkable as visualized. Reproductive: Unremarkable. Bones/joints: No acute osseous abnormality.? Osteopenia. Mild degenerative changes. Soft tissues: Breast implants in place. CT/CT kidney stone [id number] IMPRESSION: 1. Acute sigmoid diverticulitis with evidence of early perforation. 2. Additional findings, as above. Plan -Admit to medical floors -Serial abdominal exams -Continue Zosyn -Currently on ice chips, advance as per surgery's recommendation -Morphine for pain control -Zofran for nausea -D5 normal saline IV fluids for hydration -Full code, goals of care discussion -Lovenox? for DVT prophylaxis and SCDs Plan for today continue bowel rest, therapy, serial abdominal exams, advanced diet as per surgery's recommendations Attestations Medical Necessity Statement*: Patient requires hospitalization for diverticulitis with evidence of early perforation Coding Level of Care Code Acute Code for [facility] Diagnoses Diverticulitis of large intestine with complication K57.32
[2022-04-12] MEDS: acetaminophen 325 mg Tablet 650 MG PO (13:51)
--- NOTE | 2022-04-12 17:01 | PM.PN ---
Subjective Subjective: Patient reports that her abdominal pain has improved. She denies any nausea or vomiting. Positive BM and flatus Vitals/I&O/Wt Last Vital Signs Temp 98.1 F 04/12/22 16:00 Pulse 74 04/12/22 16:00 Resp 18 04/12/22 16:00 BP 114/74 04/12/22 16:00 Pulse Ox 100 04/12/22 16:00 O2 Del Method 04/12/22 16:00 04/12/22 04/12/22 04/12/22 06:59 14:59 22:59 Intake Total 902.083 / 3002.083 1530 / 1530 Output Total 800 / 800 Balance 902.083 / 3002.083 730 / 730 Weight last 48 hrs Weight 146 lb 9.6 oz Physical Exam Narrative: General: No acute distress, awake alert and oriented x3 Abdomen: Soft, nondistended, tender to palpation in left lower quadrant but improved, no guarding rebound or masses Data 04/12/22 04:59 04/12/22 04:59 Micro: Microbiology 04/12/22 09:23 Blood Culture - Preliminary Blood SPECIMEN COLLECTED 04/12/22 09:23 Blood Culture - Preliminary Blood SPECIMEN COLLECTED 04/10/22 18:25 Blood Culture - Preliminary Blood 04/10/22 18:15 Blood Culture - Preliminary Blood NEGATIVE TO DATE A&P Assessment and plan (1) Diverticulitis of large intestine with complication: Plan IV fluids Antibiotics Pain control Clear liquid diet Conservative management for now If she passes conservative management, she will need a repeat CT abdomen before discharge to evaluate for abscess formation If she fails conservative management, she will need to go for a Christian's procedure She will need a colonoscopy in 6 to 8 weeks Recommend elective sigmoidectomy after colonoscopy if she passes conservative management Anticipate full liquid diet tomorrow and soft diet on Sunday with discharge home Thank you for this consultation Attestations Medical Necessity Statement*: Patient requires hospitalization for diverticulitis with evidence of early perforation Coding Level of Care Code Acute Code for g Fwd Diagnoses Diverticulitis of large intestine with complication K57.32
[2022-04-13 03:54] VITALS: BP 97/64; PULSE 70; RESP 17; TEMP 36.7; O2SAT 97
[2022-04-13 06:04] LABS: Basophils # 0.1 10^3/uL (0.0-0.1); Basophils % 1.3 %; Eosinophils # 0.2 10^3/uL (0.0-0.8); Eosinophils % 3.6 %; Hemoglobin 11.6 g/dL (11.5-15.3); Lymphocytes # 1.9 10^3/uL (0.8-4.8); Lymphocytes % 34.5 %; Mean Corpuscular HGB Conc 32.2 g/dL (30.0-36.0); Mean Corpuscular Hemoglobin 27.6 pg (28.0-34.0); Mean Corpuscular Volume 85.7 fl (81-99); Monocytes # 0.5 10^3/uL (0.2-0.9); Monocytes % 9.7 %; Neutrophils # 2.82 10^3/uL (1.8-7.7); Neutrophils % 50.5 %; Nucleated Red Blood Cells % 0 %; Platelet Count 96 10^3/cmm (130-400); Red Cell Distribution Width 11.9 % (12.1-15.1); White Blood Count 5.6 10^3/uL (4.0-10.0)
[2022-04-13 06:21] LABS: Blood Urea Nitrogen 4 mg/dL (6-20); Calcium 8.1 mg/dL (8.5-10.5); Carbon Dioxide 21 mmol/L (22-29); Chloride 109 mmol/L (98-107); Glomerular Filtration Rate 89.7 mL/min (90-130); Glucose 106 mg/dL (65-115); Osmolality Calculated 287 mOsm/kg (285-295); Sodium 140 mmol/L (136-145)
[2022-04-13 06:23] LABS: Anion Gap 13.9 (5-19); Potassium 3.9 mmol/L (3.5-5.1)
[2022-04-13 06:34] LABS: Slide Review Slide Review Perform
--- NOTE | 2022-04-13 06:52 | CT_ITS ---
WS: [id number] CT ABDOMEN AND PELVIS WITH CONTRAST HISTORY: diverticulitis TECHNIQUE: Imaging performed of the abdomen and pelvis with IV contrast. Single phase imaging of the abdomen. Coronal and sagittal reformats are submitted. All CT scans at [facility] use at [address] one of these dose optimization techniques: automated exposure control; mA and/or kV adjustment per patient size (includes targeted exams where dose is matched to clinical indication); or iterative re construction. IV CONTRAST: Omnipaque 350; 95 mL IV. Oral contrast: No DLP: 410.93 mGy.cm COMPARISON: 04/10/2022 Lower thorax: New small RIGHT pleural effusion. Very minimal pleural thickening at the LEFT lung base . Mild emphysema. Heart is normal size. No hiatal hernia. Liver/biliary system: Liver is normal size. There is extensive periportal edema throughout the liver. Lobulated cyst LEFT lobe of the liver measures 2.6 x 1.9 cm. Portal vein is normally enhancing. Gallbladder: Normal. No gallstones or wall thickening. No pericholecystic fluid. Pancreas: Pancreas may be slightly edematous. Otherwise negative. No pancreatic duct dilatation. Spleen: Normal size spleen. There are a few scattered low-attenuation peripheral nodules within the s pleen. The largest measures 10 mm. Very nonspecific and probably benign. Adrenal glands: Normal. Right kidney: Normal. Left kidney: Normal. Aorta: Normal. Lymphadenopathy: None. Free fluid: Interval development of new ascites and mesenteric edema since the prior examination. The re is a small amount of fluid adjacent to the liver and spleen and through the mesentery and along th e RIGHT paracolic gutter. Small amount of fluid in the pelvis. This is more than physiologic. GI tract: Nondistended stomach. No small bowel obstruction. No free air is identified. Patient has kn own sigmoid diverticular disease. There is wall thickening and edema and a few scattered diverticula. The lumen is narrowed but there is no obstruction. There are a few foci of air associated with the d iverticula are very superficial but probably contained. As visualized the pancreas is negative. Abdominal wall: There are a few small foci of air in the subcutaneous soft tissues of the LEFT lower abdomen which may be an injection site. Pelvis: Free fluid in the pelvis is more than physiologic. No adenopathy. Uterus is present. Bones: Unremarkable. CT/CT abdomen pelvis w con* [id number] IMPRESSION: 1. Interval development of a small RIGHT pleural effusion, ascites, mesenteric edema and periportal edema since 04/10/2022. 2. Periportal edema with IVC enlargement are thought to be related to systemic hypervolemia. Can also be seen with passive hepatic congestion and acute hepat itis. 3. Sigmoid diverticulosis without acute diverticulitis. Wall thickening with n umerous diverticula. No definite free air is identified. Mild inflammatory haas ges persist.
[2022-04-13] MEDS: iohexol 350 mg/mL 500 mL Btl (per mL) IV (07:27)
[2022-04-13 07:51] VITALS: BP 112/74; PULSE 69; RESP 16; TEMP 37.1; O2SAT 98
[2022-04-13] MEDS: piperacillin-tazobactam 3.375 GM in sodium chloride 0.9% (plus) 50 ML IV (08:09)
[2022-04-13] MEDS: NON-FORMULARY MEDICATION (Lactobacillus Combination No.4 [Probiotic] 3 billion cell Capsul 3000 EACH PO (08:09)
--- NOTE | 2022-04-13 09:35 | P.DS_ITS ---
Discharge Providers Date of Admission: 04/10/22 17:23 Date of Discharge: April 13, 2022 Attending Provider at Admission: Logan Pichardo MD Attending Provider at Discharge: Logan Pichardo MD Primary Care Provider: Aniya Bishop MD Diagnoses at Discharge Discharge Diagnosis (1) Diverticulitis of large intestine with complication: Status: Acute Reason for Visit Reason for Visit: lower abd pain Hospital Course Hospital Course Alexia Pascual is a 46 year old female with a past medical history of irritable bowel syndrome, anxiety, who presents [facility] due to a 48-hour history of abdominal pain, distention, bloating, inability to pass gas.? Patient has been for the last 40 hours, she started to develop abdominal distention, bloating, she felt like she was , no fevers, chills, poor appetite, no nausea, no vomiting, she tells me last she is to get an enema, and she had to strain and she was able to have a bowel movement early this morning.? No bloody or black stools.? Continues to have abdominal pain, bloating, and inability to pass gas, that she came to the emergency room, in the emergency room she was diagnosed with diverticulitis with evidence of early perforation, currently hemodynamically stable, alert oriented x3, following all commands, n.p.o., at bedside, surgery has called, hospitalist team has been called to help with medical management Patient was admitted to [facility] for acute diverticulitis with evidence of patient received bowel rest, IV antibiotics, fluid therapy, General surgery was consulted. Overall patient clinically improved, passing gas stooling, tolerated and diet advancement. Repeat CT scan on discharge showed IMPRESSION:? 1.? Interval development of a small RIGHT pleural effusion, ascites, mesenteric edema and periportal edema since 04/10/2022. 2.? Periportal edema with IVC enlargement are thought to be related to systemic hypervolemia. Can also be seen with passive hepatic congestion and acute hepatitis. 3.? Sigmoid diverticulosis without acute diverticulitis. Wall thickening with numerous diverticula. No definite free air is identified. Mild inflammatory changes persist. -Will discharge her on 11 remaining is Augmentin -Continue low fiber diet for the next 2 to 3 weeks, avoid foods with a high glycemic index, and that caused abdominal bloating -After 3 to 4 weeks, and if her abdominal pain has resolved, then go on to a high fiber diet -Please follow up with General surgery in 2 weeks -If he had recurrent abdominal pain please go to emergency room Physical Exam Const: COMMON NORMALS: no acute distress and patient oriented x3 Resp: COMMON NORMALS: normal respiratory effort, No retractions, No use of accessory muscles and clear to auscultation bilaterally AUSCULTATION: clear to auscultation bilaterally Cardio: COMMON NORMALS: regular rate, regular rhythm, S1 normal heart sound present and S2 normal heart sound present RATE: regular rate RHYTHM: regular rhythm HEART SOUNDS: S1 normal heart sound present and S2 normal heart sound present GI: COMMON NORMALS: Normal to inspection, nondistended, normoactive bowel sounds present and non-tender Extremity: COMMON NORMALS: no pedal edema Neuro: COMMON NORMALS: patient oriented x3 Psych: COMMON NORMALS: mental status grossly normal Discharge Data Studies Completed and Pending Completed Studies During Hospitalization Category Date Time Status CT abdomen pelvis w con* [id number] Stat Cat Scan 04/13/22 06:[address] abdomen renal stone [CT kidney stone [id number]] Stat Cat Scan 04/10/22 16:20 Completed XR KUB portable [id number] QAM Exams 04/11/22 06:00 Completed Pending at discharge Category Date Time Status Basic Metabolic Panel AM LABS Lab 04/14/22 04:00 Ordered Blood Culture Stat Lab 04/10/22 18:15 Results Blood Culture Stat Lab 04/12/22 09:23 Results Hepatitis Acute Panel Stat Lab 04/13/22 09:35 Ordered Radiology Impressions KUB X-Ray 04/11/22 06:00 IMPRESSION: Unremarkable radiographic appearance of the abdomen. Abdomen/Pelvis CT 04/13/22 06:52 IMPRESSION: 1. Interval development of a small RIGHT pleural effusion, ascites, mesenteric edema and periportal edema since 04/10/2022. 2. Periportal edema with IVC enlargement are thought to be related to systemic hypervolemia. Can also be seen with passive hepatic congestion and acute hepatitis. 3. Sigmoid diverticulosis without acute diverticulitis. Wall thickening with numerous diverticula. No definite free air is identified. Mild inflammatory changes persist. Laboratory Results WBC 5.6 10^3/uL (4.0-10.0) 04/13/22 05:44 RBC 4.20 10^6/uL (4.1-5.3) 04/13/22 05:44 Hgb 11.6 g/dL (11.5-15.3) 04/13/22 05:44 Hct 36.0 % (37.0-47.0) L 04/13/22 05:44 MCV 85.7 fl (81-99) 04/13/22 05:44 MCH 27.6 pg (28.0-34.0) L 04/13/22 05:44 MCHC 32.2 g/dL (30.0-36.0) 04/13/22 05:44 RDW 11.9 % (12.1-15.1) L 04/13/22 05:44 Plt Count 96 10^3/cmm (130-400) L D 04/13/22 05:44 MPV 13.0 fL (7.4-10.4) H 04/13/22 05:44 Neut % (Auto) 50.5 % 04/13/22 05:44 Lymph % (Auto) 34.5 % 04/13/22 05:44 [place] % (Auto) 9.7 % 04/13/22 05:44 Eos % (Auto) 3.6 % 04/13/22 05:44 Baso % (Auto) 1.3 % 04/13/22 05:44 Neut # (Auto) 2.82 10^3/uL (1.8-7.7) 04/13/22 05:44 Lymph # (Auto) 1.9 10^3/uL (0.8-4.8) 04/13/22 05:44 [place] # (Auto) 0.5 10^3/uL (0.2-0.9) 04/13/22 05:44 Eos # (Auto) 0.2 10^3/uL (0.0-0.8) 04/13/22 05:44 Baso # (Auto) 0.1 10^3/uL (0.0-0.1) 04/13/22 05:44 Nucleated RBC % (auto) 0 % 04/13/22 05:44 Nucleated RBCs # 0.0 /100WBC 04/13/22 05:44 PT 13.30 SECONDS (12.1-14.9) 04/10/22 18:15 INR 0.98 (0.8-1.2) 04/10/22 18:15 Sodium 140 mmol/L (136-145) 04/13/22 05:44 Potassium 3.9 mmol/L (3.5-5.1) 04/13/22 05:44 Chloride 109 mmol/L (98-107) H 04/13/22 05:44 Carbon Dioxide 21 mmol/L (22-29) L 04/13/22 05:44 Anion Gap 13.9 (5-19) 04/13/22 05:44 BUN 4 mg/dL (6-20) L 04/13/22 05:44 Creatinine 0.7 mg/dL (0.5-0.9) 04/13/22 05:44 GFR Calculation 89.7 mL/min (90-130) L 04/13/22 05:44 Glucose 106 mg/dL (65-115) 04/13/22 05:44 Calculated Osmolality 287 mOsm/kg (285-295) 04/13/22 05:44 Lactic Acid 0.6 mmol/L (0.5-2.2) 04/10/22 18:15 Lactate 0.6 mmol/L (0.5-2.2) 04/11/22 04:56 Calcium 8.1 mg/dL (8.5-10.5) L 04/13/22 05:44 Phosphorus 3.6 mg/dL (2.5-4.5) 04/11/22 04:56 Magnesium 1.9 mg/dL (1.7-2.3) 04/11/22 04:56 Total Bilirubin 0.4 mg/dL (0.15-1.2) 04/11/22 04:56 AST 19 U/L (0-32) 04/11/22 04:56 ALT 15 U/L (0-33) 04/11/22 04:56 Alkaline Phosphatase 55 U/L (35-105) 04/11/22 04:56 C-Reactive Protein 79.0 mg/L (0.0-4.9) H 04/11/22 04:56 Total Protein 5.2 g/dL (6.6-8.7) L D 04/11/22 04:56 Albumin 3.2 g/dL (3.5-5.2) L 04/11/22 04:56 Globulin 2.0 g/dL (1.3-4.6) 04/11/22 04:56 Lipase 23 U/L (13-60) 04/10/22 15:45 Procalcitonin 0.05 ng/mL (0-0.5) 04/11/22 04:56 TSH 3.42 uIU/mL (0.27-4.20) 04/10/22 18:15 HCG, Qual Negative (Negative) 04/10/22 15:21 Urine Color Yellow (Yellow) 04/10/22 15:21 Urine Appearance Clear (CLEAR) 04/10/22 15:21 Urine pH 5 (5-7) 04/10/22 15:21 Ur Specific [place] 1.015 (1.005-1.030) 04/10/22 15:21 Urine Protein Neg (Negative) 04/10/22 15:21 Urine Glucose (UA) Norm (Normal) 04/10/22 15:21 Urine Ketones 1+ (Negative) H 04/10/22 15:21 Urine Blood 3+ (Negative) H 04/10/22 15:21 Urine Nitrate Negative (Negative) 04/10/22 15:21 Urine Bilirubin Neg (Negative) 04/10/22 15:21 Urine Urobilinogen Norm mg/dL (Negative) 04/10/22 15:21 Ur Leukocyte Esterase Negative (Negative) 04/10/22 15:21 Urine RBC 0-4 /hpf (0-2) H 04/10/22 15:21 Urine WBC None /hpf (0-5) 04/10/22 15:21 Ur Squamous Epith Cells 0-4 /hpf (0-5) H 04/10/22 15:21 Amorphous Sediment Not Reportable 04/10/22 15:21 Urine Bacteria Trace /hpf (NONE) 04/10/22 15:21 Vitals Last Vital Signs Temp 98.7 F 04/13/22 07:51 Pulse 69 04/13/22 07:51 Resp 16 04/13/22 07:51 BP 112/74 04/13/22 07:51 Pulse Ox 98 04/13/22 07:51 O2 Del Method 04/13/22 07:51 Discharge Plan Discharge Patient Disposition: Home Condition: Stable Prescriptions: New amoxicillin-pot clavulanate 875-125 mg tablet 1 tab PO BID 11 Days Qty: 22 0RF fluconazole [Diflucan] 150 mg tablet 150 mg PO Q3D Qty: 2 0RF Rx Instructions: use only if you develop a yeast infection Continued triamterene-hydrochlorothiazid [Maxzide-25mg] 37.5-25 mg tablet 1 tab PO QAM Qty: 30 1RF albuterol sulfate [Ventolin HFA] 90 mcg/actuation HFA aerosol inhaler See Rx Instructions .ROUTE .COMPLEX Qty: 1 5RF Dose Instruction: INHALE 2 PUFFS BY MOUTH EVERY 2 TO 4 HOURS NEEDED Rx Instructions: INHALE 2 PUFFS BY MOUTH EVERY 2 TO 4 HOURS NEEDED trazodone 100 mg tablet 100 mg PO .QHS Qty: 30 2RF Vyvanse 40 mg capsule 40 mg PO QAM 30 Days Qty: 30 0RF valacyclovir 1 gram tablet See Rx Instructions .ROUTE .COMPLEX Qty: 4 3RF Dose Instruction: TAKE TWO TABLETS BY MOUTH TWICE DAILY Rx Instructions: TAKE TWO TABLETS BY MOUTH TWICE DAILY alprazolam 0.25 mg tablet 0.25 mg PO DAILY PRN (Reason: anxiety) Qty: 30 0RF Evening [place]coe 500 mg Capsule 500 mg PO TID Rx Instructions: give with meal/snack zinc acetate 25 mg (zinc) Capsule 25 mg PO DAILY DHEA 50 mg Capsule 50 mg PO DAILY Vitamin C 500 mg Tablet 500 mg PO DAILY Vitamin D3 25 mcg (1,000 unit) Capsule 25 mcg PO DAILY magnesium 200 mg Tablet 200 mg PO DAILY Probiotic 3 billion cell Capsule 3,000 mmu cells PO DAILY Rx Instructions: administer with a meal ashwagandha root extract 300 mg Capsule 300 mg PO DAILY vitamin K2 45 mcg Capsule 45 mcg PO DAILY Phytoestrogens 1 tab PO BID Discharge Orders: Discharge Order (Routine); Ordered 04/13/22 Ordered By: Logan Pichardo Referrals: Wolfgang Marroquin DO [Physician] - 2 weeks Aniya Bishop MD [Primary Care Provider] - Discharge Diet: Advance as tolerated Discharge Activity: Resume usual activity Patient Instructions: Diverticulitis (DC), Diverticulosis (DC), Diverticulitis Diet (DC), GI (Gastrointestinal) Soft Diet (ED), Opioid Safety Activity Restrictions/Additional Instructions: - For the next 3 weeks adhere to a low fiber diet -Avoid foods with a high glucose/sucrose/fructose content -Continue Augmentin for 11 remaining days -I have discharged you with Diflucan to be used only if he developed a yeast infection -Please follow up general surgery 2 weeks -If he had recurrent abdominal pain go to the emergency room Discharge Attestations Time Spent in Discharge Care*: greater than 30 min Quality Metrics Clinical Quality Measures [ No reported AMI, CVA or VTE this stay] Coding Level of Care Code Acute Code for [facility] Diagnoses Diverticulitis of large intestine with complication K57.32
[2022-04-13] MEDS: pantoprazole 40 mg SDV IVP (10:07)
[2022-04-13 10:32] LABS: Hepatitis A Antibody IgM Non-Reactive (Nonreactive); Hepatitis B Core IgM Non-Reactive (Nonreactive); Hepatitis B Surface Antigen Non-Reactive (Nonreactive); Hepatitis C Virus Antibody Non-Reactive (Nonreactive)
--- NOTE | 2022-04-13 11:18 | P.PN_ITS ---
Subjective Subjective: Patient reports that her abdominal pain has improved. She denies any nausea or vomiting. Tolerated clear liquid diet. positive BM and flatus Vitals/I&O/Wt Last Vital Signs Temp 98.7 F 04/13/22 07:51 Pulse 69 04/13/22 07:51 Resp 16 04/13/22 07:51 BP 112/74 04/13/22 07:51 Pulse Ox 98 04/13/22 07:51 O2 Del Method 04/13/22 07:51 04/12/22 04/13/22 04/13/22 22:59 06:59 14:59 Intake Total 1482.083 / 3012.083 872.917 / 3885.000 297.083 / 297.083 Output Total 1000 / 1800 80 / 1880 Balance 482.083 / 1212.083 792.917 / 2005.000 297.083 / 297.083 Physical Exam Narrative: General: No acute distress, awake alert and oriented x3 Abdomen: Soft, nondistended, tender to palpation in left lower quadrant but improved, no guarding rebound or masses Data 04/13/22 05:44 04/13/22 05:44 Micro: Microbiology 04/12/22 09:23 Blood Culture - Preliminary Blood NEGATIVE TO DATE 04/12/22 09:23 Blood Culture - Preliminary Blood NEGATIVE TO DATE 04/10/22 18:25 Blood Culture - Preliminary Blood A&P Assessment and plan (1) Diverticulitis of large intestine with complication: Plan IV fluids Antibiotics Pain control Soft diet. She tolerates a soft diet she is surgically stable for discharge from a surgical perspective She will need a colonoscopy in 6 to 8 weeks Recommend elective sigmoidectomy after colonoscopy if she passes conservative management Thank you for this consultation Attestations Medical Necessity Statement*: She has been discharged home Coding Level of Care Code Acute Code for [facility] Diagnoses Diverticulitis of large intestine with complication K57.32
[2022-04-13 11:58] VITALS: BP 115/75; PULSE 94; RESP 16; TEMP 36.6; O2SAT 94
[2022-04-13 13:31] VITALS: BP 115/75; PULSE 94; RESP 16; TEMP 36.6; O2SAT 94
== END 2022-04-13 13:32 | disposition home or self-care (01) | DRG 392 ==
LOC: ER 19:10 → MEDSURG 20:14
PROVIDERS: Admitting Provider Family Medicine; Emergency Provider Emergency Medicine; PCP Family Medicine; Visit Provider Family Medicine
DX: K57.20 Diverticulitis of large intestine with perforation and abscess without bleeding (principal); K58.9 Irritable bowel syndrome, unspecified; F41.9 Anxiety disorder, unspecified; F17.210 Nicotine dependence, cigarettes, uncomplicated
CPT/HCPCS: 36415; 74018; 74176; 74177; 80048; 80053; 80074; 81001; 81025; 83605; 83690; 83735; 84100; 84145; 84443; 85025; 85610; 86140; 87040; 87077; 87186; 87205; 87210; 96365; 96372; 96375; 96376; 99285; C9113; J1650; J2405; J2543; J7030; J7042; Q9967

== ENCOUNTER → 2023-07-03 08:25 | Outpatient (BNVA) | payer OTHER, SELFPAY | PROVIDERS: PCP Family Medicine; Visit Provider Family Medicine | DX: Z13.6 Encounter for screening for cardiovascular disorders (principal); N95.1 Menopausal and female climacteric states | CPT/HCPCS: 80053; 80061; 82672; 84403; 84443; 85025 ==

== ENCOUNTER → 2023-10-10 11:32 | Outpatient (BNVA) | payer OTHER, SELFPAY | PROVIDERS: PCP Family Medicine; Visit Provider Family Medicine | DX: R10.9 Unspecified abdominal pain (principal) | CPT/HCPCS: 81000 ==